=== PATIENT | female | born 1940 | race Caucasian/White ===

== ENCOUNTER 2016-07-25 05:31 | Observation (INO) | payer OTHER, MEDICARE ==
[2016-07-17 16:19] LABS: % IMMATURE GRANULYOCYTES 0.2 % (0.0-1.1); ABSOLUTE IMMATURE GRANULOCYTES 0.01 10^3/uL (0.00-0.10); ADD DIFF? NO; ADD MORPH? NO; ADD SCAN? NO; ATYPICAL LYMPHOCYTE FLAG 20 (0-99); FRAGMENT RBC FLAG 0 (0-99); HEMATOCRIT 44.6 % (38.0-47.0); HEMOGLOBIN 15.1 g/dL (12.6-16.3); LEFT SHIFT FLG 0 (0-99); LIPEMIA HEMOLYSIS FLAG 90 (0-99); MEAN CELL HEMOGLOBIN 31.9 pg (27.9-34.1); MEAN CELL HEMOGLOBIN CONCENTR. 33.9 g/dL (32.4-36.7); MEAN CELL VOLUME 94.3 fL (81.5-99.8); MEAN PLATELET VOLUME 11.1 fL (8.7-11.7); PLATELET CLUMPS FLAG 0 (0-99); PLATELET COUNT 183 10^3/uL (150-400); RED BLOOD CELL COUNT 4.73 10^6/uL (4.18-5.33); RED CELL DISTRIBUTION WIDTH 12.3 % (11.5-15.2)
[2016-07-25] MEDS ORDERED: ceFAZolin 2 GM/DEXTROSE 100 ML IV ONE (06:00)
[2016-07-25] MEDS ORDERED: LIDOCAINE 1% 2 ML INJ ONE (06:46)
[2016-07-25] MEDS ORDERED: THROMBIN (RECOMBINANT) 5,000 UNIT VIAL TP ONE (06:47)
[2016-07-25] MEDS ORDERED: BUPIVACAINE/EPI 0.25% 30 ML SDV ONE ×2 (06:47→08:00)
[2016-07-25] MEDS ORDERED: BACITRACIN 50,000 UNITS/10 ML SYR IRR ONE (06:48)
[2016-07-25] MEDS ORDERED: DEPO METHYLPREDNISOLONE 40 MG/ML SDV ONE (06:48)
[2016-07-25] MEDS ORDERED: SCOPOLAMINE HYDROBROMIDE 1.5 MG PATCH TD ONE (07:06)
[2016-07-25] MEDS ORDERED: morphINE PCA 30 MG/30 ML PCA IV PRN (07:14)
[2016-07-25] MEDS ORDERED: NALOXONE HCL 0.4 MG/ML INJ IVP PRN (07:14)
[2016-07-25] MEDS ORDERED: diphenhydrAMINE 25 MG CAP PO PRN (07:14)
[2016-07-25] MEDS ORDERED: LACTULOSE 20 GM/30 ML UDCUP PO PRN (07:14)
[2016-07-25] MEDS ORDERED: BISACODYL 10 MG SUPP PR PRN (07:14)
[2016-07-25] MEDS ORDERED: TEMAZEPAM 15 MG CAP PO PRN (07:14)
[2016-07-25] MEDS ORDERED: DIAZEPAM 5 MG TAB PO PRN (07:14)
[2016-07-25] MEDS ORDERED: MAGNESIUM HYDROXIDE 30 ML UDCUP PO PRN (07:14)
[2016-07-25] MEDS ORDERED: POLYETHYLENE GLYCOL 3350 17 GM PKT PO PRN (07:14)
[2016-07-25] MEDS ORDERED: ONDANSETRON DISINTEGRATING 4 MG TAB PO PRN (07:14)
[2016-07-25] MEDS ORDERED: METHOCARBAMOL 750 MG TAB PO PRN (07:14)
[2016-07-25] MEDS ORDERED: ONDANSETRON 4 MG/2 ML VIAL IVP PRN (07:14)
[2016-07-25] MEDS ORDERED: DIAZEPAM 10 MG/2 ML SYR IVP PRN (07:14)
[2016-07-25] MEDS ORDERED: ACETAMINOPHEN 325 MG TAB PO PRN (07:14)
[2016-07-25] MEDS ORDERED: NS W/ 20 KCl/L 1,000 ML IV SCH (07:15)
[2016-07-25] MEDS ORDERED: fentaNYL 100 MCG/2 ML INJ ONE ×2 (07:16→10:03)
[2016-07-25] MEDS ORDERED: LIDOCAINE 2% 5 ML SDV ONE (07:16)
[2016-07-25] MEDS ORDERED: PROPOFOL 200 MG/20 ML VIAL ONE (07:16)
[2016-07-25] MEDS ORDERED: ROCURONIUM 50 MG/5 ML VIAL ONE (07:16)
[2016-07-25] MEDS ORDERED: DEXAMETHASONE 4 MG/ML VIAL ONE ×2 (07:18→08:06)
[2016-07-25] MEDS ORDERED: HYDROmorphONE/DILAUDID 2 MG/ML INJ ONE (07:24)
[2016-07-25] MEDS ORDERED: MIDAZOLAM 2 MG/2 ML VIAL ONE (07:24)
[2016-07-25] MEDS ORDERED: SKIN ADHESIVE (DERMABOND) 1 EACH TP ONE (08:02)
[2016-07-25] MEDS ORDERED: GLYCOPYRROLATE 0.2 MG/1 ML VIAL ONE ×2 (08:06)
[2016-07-25] MEDS ORDERED: PROPOFOL/EMULSION 500 MG/50 ML BOTTLE IV ONE (08:20)
[2016-07-25] MEDS ORDERED: FAMOTIDINE 20 MG/NACL 50 ML IV SCH (09:00)
--- NOTE | 2016-07-25 10:26 | SOAPPROG ---
SOAP Progress Note Assessment/Plan: Post Op Visit: S: Awake and alert. Pt with expected lower back pain O: AFVSS/PERRLA/EOMI no droop CN 2-12 grossly intact +lt touch CDI A/P: 75 yo female that is s/p L3/4 laminectomy -orders in place -call with any questions or concerns -take medications as directed -pt seen by Dr Nevarez 07/25/16 10:23 Objective: Laboratory Results 07/17/16 16:02 ICD10 Worksheet Patient Problems: Problems Problem Status Onset Lumbar radiculitis Acute Lumbar stenosis Acute - ICD10 Problem Qualifiers (1) Lumbar stenosis (2) Lumbar radiculitis
--- NOTE | 2016-07-25 10:39 | GOP ---
DATE OF OPERATION: 07/25/2016 SURGEON: Damian Nevarez MD NEUROSURGEON: Damian Nevarez MD. TUTORING MANAGER: Kip Espinoza PA-C. PREOPERATIVE DIAGNOSIS: Lumbar spondylolisthesis with severe stenosis at L3-4. Mild lumbar spondyl olisthesis L4-5 with stenosis. Bilateral lumbosacral radiculopathy. POSTOPERATIVE DIAGNOSIS: Lumbar spondylolisthesis with severe stenosis at L3-4. Mild lumbar spondy lolisthesis L4-5 with stenosis. Bilateral lumbosacral radiculopathy. PROCEDURE PERFORMED: L3-4 laminectomy, bilateral medial facetectomy, decompression bilateral recess es L3-4 (61202), microscope, fluoroscopy. FINDINGS: ESTIMATED BLOOD LOSS: 50 cc. DESCRIPTION OF PROCEDURE: Patient was taken to the operating room, placed in a supine position. Ge neral anesthesia was begun. She was flipped prone on the Kirk frame. Care was taken to pad all p oints of contact. Her back was sterilely prepped and draped in the usual fashion. A localizing x-r ay was taken. We made a 3 cm incision above the L3-4 interspace. The subcutaneous tissue was disse cted using Bovie cautery down to the fascia. A subfascial dissection was made down the L3-4 lamina. Self-retaining retractor was placed. A localizing x-ray was taken. We drilled to remove the infe rior L3 spinous process. Preserved the rostral L3 spinous process. We removed the rostral arch of L4 and performed a bilateral laminectomy, removing the inferior arch of L3 from bilateral medial fac etectomies. Under the scope, we removed the hypertrophic ligamentum flavum. There were cysts assoc iated with both of the facet joints at L3-4, and there was a left intraspinal cyst larger than the r ight intraspinal cyst. Both of these were resected and the nerves were completely decompressed from the mid L4 pedicle all the way up to the inferior L3 pedicle, and this was confirmed with x-ray. I rrigated with antibiotic saline solution. Closed the incision in multiple layers using Vicryl sutur es. A running PDS was placed in the skin itself. There were no complications. COMPLICATIONS: None. INDICATIONS FOR THE PROCEDURE: The patient is a 75 year old, who did have a mild but stable spondyl olisthesis L3-4 and L4-5 and was having bilateral lumbosacral radicular symptoms, and I suggested a single-level decompression at L3-4. She may, in fact, need multi level stabilization and decompress ion, but it is my hope that given her advanced age, she might respond to a simple decompression galina e. The risk of nerve injury, spinal fluid leak, continued symptoms was discussed. She understood t hat her spondylolisthesis could worsen over time, and she may require the larger surgery. She wante d to proceed. /[id number]/MODL
[2016-07-25] MEDS: LOSARTAN POTASSIUM 25 MG TAB PO SCH (11:20)
[2016-07-25] MEDS: SENNOSIDES/DOCUSATE SODIUM TAB PO SCH ×2 (11:21→21:25)
[2016-07-25] MEDS: HYDROCODONE/APAP 5/325 TAB PO PRN ×4 (11:39→22:39)
[2016-07-25 19:31] VITALS: RESP 16
[2016-07-25] MEDS: FAMOTIDINE 20 MG TAB PO SCH (21:25)
[2016-07-26] MEDS ORDERED: LEVOTHYROXINE 88 MCG TAB PO SCH (06:00)
--- NOTE | 2016-07-26 07:40 | NEUSURGPN ---
Assessment/Plan: Post Op Visit: S: Patient doing well. pain level a 3/10 currently. Has been out of bed to walk. Passing gas. Leg pain improved. O: AFVSS/PERRLA/EOMI CN 2-12 grossly intact BLE 5/5= +lt touch CDI- dressed A/P: 75 yo female that is s/p L3/4 laminectomy -optimize pain control on oral medications -PT/OT this morning -Discharge home later today after therapies -call with any questions or concerns -take medications as directed -pt seen by Dr Nevarez as well - Physician Discussed Patient with : Roque Patient Seen by : Roque Neurosurgery Physical Exam - Vitals, I&O, Labs I and O 07/25/16 07/26/16 07/27/16 05:59 05:59 05:59 Intake Total 3550 Output Total 1550 Balance 2000 Intake: Oral (ml) 1000 IV Intake (ml) 1500 IV Infused (ml) 1050 NS W/ 20 KCl/L 1,000 ml @ 1050 75 mls/hr IV CONT CALLIE Rx #:[id number] Output: Urine (ml) 1500 Catheter 1000 Toilet 500 Estimated Blood Loss (ml) 50 Other: Post Void Residual Scan Volume (ml) Toilet 331 Vital Signs Temp Pulse Resp BP Pulse Ox 36.4 C 67 16 142/83 H 94 07/25/16 19:30 07/25/16 19:30 07/25/16 19:30 07/25/16 19:30 07/25/16 19:30 Laboratory Results 07/17/16 16:02 ICD10 Worksheet Patient Problems: Problems Problem Status Onset Lumbar radiculitis Acute Lumbar stenosis Acute
[2016-07-26 07:54] VITALS: BP 134/78; PULSE 57; TEMP 97.9; O2SAT 92
[2016-07-26] MEDS: FAMOTIDINE 20 MG TAB PO SCH (08:04)
[2016-07-26] MEDS: LOSARTAN POTASSIUM 25 MG TAB PO SCH (08:04)
[2016-07-26] MEDS: SENNOSIDES/DOCUSATE SODIUM TAB PO SCH (08:04)
[2016-07-26] MEDS: oxyCODONE IR 5 MG TAB PO PRN ×2 (08:04→12:18)
[2016-07-28] MEDS ORDERED: ENOXAPARIN 40 MG/0.4 ML SYR SC SCH (09:00)
== END 2016-07-26 12:26 | disposition home or self-care (01) ==
LOC: F3N 05:31
PROVIDERS: ADMIT Neurological Surgery; ATTEND Neurological Surgery
DX: M48.06 Spinal stenosis, lumbar region (principal); M43.16 Spondylolisthesis, lumbar region; M54.17 Radiculopathy, lumbosacral region; I10 Essential (primary) hypertension; E03.9 Hypothyroidism, unspecified; E66.9 Obesity, unspecified; Z68.33 Body mass index [BMI] 33.0-33.9, adult
CPT/HCPCS: 63047; 76001; 97161; 97165; 97530; G8978; G8979; G8980; G8987; G8988; G8989; J0690; J1020; J1100; J1170; J2250; J2405; J2704; J3010